=== PATIENT | male | born 1950 | race Caucasian/White ===

== ENCOUNTER 2023-08-17 06:05 | Day surgery (SDC) | payer OTHER, SELFPAY ==
[2023-08-17] VITALS (7 sets, daily range): BP systolic 119–148; BP diastolic 67–74; BMI 26.9
== END 2023-08-17 18:05 | disposition home or self-care (01) ==
LOC: SDS 06:05
PROVIDERS: ATTENDING PHYSICIAN Otolaryngology; FAMILY PHYSICIAN Nurse Practitioner Family
DX: J34.2 Deviated nasal septum (principal); J34.3 Hypertrophy of nasal turbinates
CPT/HCPCS: 30520; 30140